=== PATIENT | male | born 1940 | race Caucasian/White ===

== ENCOUNTER → 2019-04-14 | Outpatient (CLI) | payer MEDICARE, OTHER ==
[~2019-04-14] MED LIST: Advil200 M1 PO; ELIQUIS5 MG PO; FISH1000 PO; LISI5 PO; METF500 PO; SIMV10 PO
== END ==
LOC: LAB SHORT 08:11 → PLD 08:11
DX: D03.22 Melanoma in situ of left ear and external auricular canal (principal)
CPT/HCPCS: 88305

== ENCOUNTER → 2023-11-29 | Outpatient (CLI) | payer MEDICARE, OTHER ==
[2023-11-29 10:44] LABS: BASOPHILS ABSOLUTE AUTO 0.02 K/mm3 (0.00-0.23); BASOPHILS PERCENT AUTO 0 % (0-2); EOSINOPHILS ABSOLUTE AUTO 0.16 K/mm3 (0.00-0.68); EOSINOPHILS PERCENT AUTO 2 % (0-6); Hematocrit 42.5 % (37.0-53.0); Hemoglobin 14.4 g/dL (13.5-17.5); IMMATURE GRAN ABSOLUTE AUTO 0.03 K/mm3 (0.00-0.10); IMMATURE GRAN PERCENT AUTO 0 % (0-1); LYMPHOCYTES ABSOLUTE AUTO 1.46 K/mm3 (0.84-5.20); LYMPHOCYTES PERCENT AUTO 19 % (21-46); MONOCYTES ABSOLUTE AUTO 0.52 K/mm3 (0.16-1.47); MONOCYTES PERCENT AUTO 7 % (4-13); Mean Corpuscular HGB 29.7 pg (26.0-34.0); Mean Corpuscular HGB Conc 33.9 g/dL (31.5-36.5); Mean Corpuscular Volume 88 fL (80-100); Mean Platelet Volume 9.3 fL (9.1-12.4); NEUTROPHILS ABSOLUTE AUTO 5.57 K/mm3 (1.96-9.15); NEUTROPHILS PERCENT AUTO 72 % (41-73); Platelet Count 213 K/mm3 (150-400); RDW Coefficient Variation 13.1 % (11.7-14.2); RDW Standard Deviation 42.1 fL (35.1-46.3); Red Blood Cell Count 4.85 M/mm3 (4.30-5.90); White Blood Cell Count 7.76 K/mm3 (4.00-11.30)
[2023-11-29 10:55] LABS: Albumin, Blood 2.8 g/dL (3.4-5.0); Albumin/Globulin Ratio 0.6 (0.8-1.8); Bilirubin, Total 0.9 mg/dL (0.1-1.0); Bun/Creatinine Ratio 18.9 (12.0-20.0); Calcium, Blood 9.1 mg/dL (8.5-10.1); Creatinine, Blood 1.32 mg/dL (0.60-1.20); Globulin, Blood 4.5 g/dL (2.2-4.0); Potassium, Blood 4.1 mmol/L (3.5-5.5); Total Protein, Blood 7.3 g/dL (6.4-8.2)
== END ==
LOC: LAB SHORT 10:40 → LAB 10:40
PROVIDERS: Family Medicine
DX: R53.1 Weakness (principal)
CPT/HCPCS: 80053; 85025

== ENCOUNTER 2024-02-10 05:33 | Day surgery (SDC) | payer MEDICARE, OTHER ==
[2024-02-10] VITALS (8 sets, daily range): BP systolic 114–159; BP diastolic 87–108
[2024-02-10] MEDS ORDERED: XARELTO20 MG PO (06:26)
[2024-02-10] MEDS ORDERED: METO25ER PO (06:27)
[2024-02-10] MEDS ORDERED: NS 1,000 ML IV ONE (06:39)
[2024-02-10] MEDS ORDERED: Benzocaine Oral Spray 0.5ML UD ONE (07:02)
--- NOTE | 2024-02-10 07:29 | NUR ---
ASSUMED CARE OF PT FROM ANESTHESIA. PT AWAKE AND VERBALIZING WELL.
--- NOTE | 2024-02-10 08:14 | NUR ---
PT AND VERBALIZED UNDERSTANING OF WRITTEN AND VERBAL D/C INST. PT AMB IN RM /S DIFFICULTY. TAKING PO FLUIDS WELL. IV REMOVED. PT TAKEN OUT OF THE HRT CENTER VIA W/C.
[2024-02-10] MEDS ORDERED: Propofol 10mg/ml 20 ml Vial (Procedural) IV ONE (08:40)
== END 2024-02-10 22:43 | disposition home or self-care (01) ==
LOC: MHTC 05:33
DX: T82.857A Stenosis of other cardiac prosthetic devices, implants and grafts, initial encounter (principal); Y71.2 Prosthetic and other implants, materials and accessory cardiovascular devices associated with adverse incidents; R06.09 Other forms of dyspnea; R53.83 Other fatigue; I10 Essential (primary) hypertension; I25.10 Atherosclerotic heart disease of native coronary artery without angina pectoris; I48.0 Paroxysmal atrial fibrillation; J45.909 Unspecified asthma, uncomplicated; E11.9 Type 2 diabetes mellitus without complications; E78.5 Hyperlipidemia, unspecified; I27.20 Pulmonary hypertension, unspecified; G47.33 Obstructive sleep apnea (adult) (pediatric); Z87.891 Personal history of nicotine dependence; Z88.8 Allergy status to other drugs, medicaments and biological substances; Z79.899 Other long term (current) drug therapy
CPT/HCPCS: 93312; 93325; A9270; J2704; J7030

== ENCOUNTER 2024-06-27 06:32 | Day surgery (SDC) | payer MEDICARE, OTHER ==
[~2024-06-27 06:32] MED LIST changes: +METO25ER PO; +XARELTO20 MG PO
[2024-06-27 06:55] VITALS: BP 143/92
[2024-06-27] MEDS ORDERED: NS 1,000 ML IV ONE (06:57)
[2024-06-27] MEDS ORDERED: Benzocaine Oral Spray 0.5ML UD ONE (06:58)
[2024-06-27 07:32] VITALS: BP 140/107
[2024-06-27 07:34] VITALS: BP 146/86
[2024-06-27 07:42] VITALS: BP 136/92
[2024-06-27 07:44] VITALS: BP 144/97
[2024-06-27 07:48] VITALS: BP 109/86
--- NOTE | 2024-06-27 07:48 | NUR ---
ASSUMED CARE FROM ANETHESIA. PT AWAKE AND VERBALIZING WELL.
--- NOTE | 2024-06-27 08:10 | NUR ---
PT AND VERBALIZED UNDERSTANDING OR WRITTEN AND VERBAL D/C INST. IV REMOVED. PT TAKEN OUT OF THE HRT CENTER VIA W/C.
[2024-06-27] MEDS ORDERED: Propofol 10mg/ml 20 ml Vial (Procedural) IV ONE (20:09)
== END 2024-06-27 23:00 | disposition home or self-care (01) ==
LOC: MHTC 06:32
DX: I48.0 Paroxysmal atrial fibrillation (principal); I25.10 Atherosclerotic heart disease of native coronary artery without angina pectoris; I10 Essential (primary) hypertension; E11.9 Type 2 diabetes mellitus without complications; G47.33 Obstructive sleep apnea (adult) (pediatric); E78.5 Hyperlipidemia, unspecified; Z95.2 Presence of prosthetic heart valve; Z87.891 Personal history of nicotine dependence; Z79.01 Long term (current) use of anticoagulants; Z79.899 Other long term (current) drug therapy; Z88.8 Allergy status to other drugs, medicaments and biological substances; Z90.49 Acquired absence of other specified parts of digestive tract
CPT/HCPCS: 93312; 93325; A9270; J2704; J7030

== ENCOUNTER → 2024-07-04 | Outpatient (CLI) | payer MEDICARE, OTHER | END | disposition home or self-care (01) | LOC: LAB SHORT 17:26 → LAB 17:26 | DX: N39.0 Urinary tract infection, site not specified (principal) | CPT/HCPCS: 87086 ==